=== PATIENT | male | born 1955 | race Caucasian/White ===

== ENCOUNTER 2018-04-09 18:40 | Emergency (ER) | payer MEDICARE, BC ==
[2018-04-09 20:30] VITALS: BP 132/66
[2018-04-09] MEDS ORDERED: Doxycycline 100 MG Cap PO ONE (21:12)
--- NOTE | 2018-04-09 21:17 | EDM.PDOC ---
ED HPI GENERAL MEDICAL PROBLEM - General Chief Complaint: Bite:Animal, Insect Stated Complaint: TICK BITE Time Seen by Provider: 04/09/18 18:42 Source of Information: Reports: Patient History Limitations: Reports: No Limitations - History of Present Illness INITIAL COMMENTS - FREE TEXT/NARRATIVE: Bit by tick on ankle about 3 days ago. Today there is a small red ring around the area. - Related Data Allergies Allergy/AdvReac Type Severity Reaction Status Date / Time codeine Allergy Nausea and Verified 04/09/18 20:20 Vomiting Home Meds: Home Meds Calcium Carbonate/Vitamin D3 [Calcium 600 + Vit D Tablet] 1 each PO DAILY [History] Creon-6000 2 cap PO TIDAC 07/18/13 [History] Metoprolol Tartrate 25 mg PO BID 07/18/13 [History] Omeprazole 40 mg PO DAILY 07/18/13 [History] oxyCODONE HCl/Acetaminophen [oxyCODONE-Acetaminophen 5-325] 2 tab PO Q4H PRN [History] Folic Acid 1 mg PO DAILY 01/08/14 [History] Insulin Isophane NPH, Human [NovoLIN N] 28 units SUBCUT DAILY 01/08/14 [History] Sulfamethoxazole/Trimethoprim [Sulfamethoxazole-Tmp Ss Tablet] 1 tab PO DAILY [History] Social & Family History - Tobacco Use Smoking Status *Q: Current Every Day Smoker Years of Tobacco use: 40 Packs/Tins Daily: 1 ED ROS GENERAL - Review of Systems Review Of Systems: ROS reveals no pertinent complaints other than HPI. ED EXAM, ANIMAL BITE - Physical Exam Exam: See Below Exam Limited By: No Limitations General Appearance: Alert, WD/WN Skin Exam: Other (affected ankle: there is about 2 cm red circular area to anterior aspect of ankle with central bit ashley.) Course - Vital Signs Last Recorded V/S: Last Vital Signs Temp 36.0 C 04/09/18 20:28 Pulse 50 L 04/09/18 20:28 Resp 14 04/09/18 20:28 BP 132/66 04/09/18 20:28 Pulse Ox 93 L 04/09/18 20:28 - Orders/Labs/Meds Meds: Medications Discontinued Medications Generic Name Dose Route Start Last Admin Trade Name Freq PRN Reason Stop Dose Admin Doxycycline Hyclate 100 mg 04/09/18 21:12 Vibramycin PO 04/09/18 21:13 ONETIME ONE Departure - Departure Time of Disposition: 21:16 Disposition: Home, Self-Care 01 Condition: Fair Clinical Impression: Tick bite - Discharge Information Referrals: Bear Archuleta MD [Primary Care Provider] - Additional Instructions: take doxycycline 100 mg twice daily for 1 week. This will prevent Lyme disease.
== END 2018-04-09 21:25 | disposition home or self-care (01) ==
LOC: JP.ED 18:40
DX: S90.561A Insect bite (nonvenomous), right ankle, initial encounter (principal); F17.210 Nicotine dependence, cigarettes, uncomplicated; Z88.5 Allergy status to narcotic agent; Z79.899 Other long term (current) drug therapy; W57.XXXA Bitten or stung by nonvenomous insect and other nonvenomous arthropods, initial encounter
CPT/HCPCS: 99283; A9270

== ENCOUNTER 2019-11-23 07:26 | Day surgery (SDC) | payer MEDICARE, BC ==
[~2019-11-23 07:26] MED LIST: Lidocaine 1% with EPINEPHrine 1:100,000 50 ML MDV ONE; Midazolam 1 MG/ML 2 ML SDV ONE; Propofol 200 MG/20 ML SDV ONE; fentaNYL 100 MCG/2 ML SDV ONE
[2019-11-23] MEDS ORDERED: Dextrose 5%-Lactated Ringers 1,000 ML IV SCH (08:15)
[2019-11-23] MEDS ORDERED: Propofol 200 MG/20 ML SDV ONE (08:45)
[2019-11-23 10:48] VITALS: BP 114/65; PULSE 65
--- NOTE | 2019-11-27 12:08 | OR ---
DATE OF PROCEDURE: 11/23/2019 SURGEON: Oliverio Garay MD PREOPERATIVE DIAGNOSIS: Rule out temporal arteritis. POSTOPERATIVE DIAGNOSIS: Rule out temporal arteritis. OPERATIVE PROCEDURE: Bilateral temporal artery biopsies ([id number] [id number]). ANESTHESIA: Local plus IV sedation. INDICATION FOR PROCEDURE: The patient presents with bilateral headaches involving the temporal areas, along with some tenderness over the temporal arteries and is referred for bilateral temporal artery biopsies. Potential risks of the procedure including bleeding and infection were reviewed, and the patient wishes to proceed. DETAILS OF PROCEDURE: The patient was taken to the operative room and placed in a supine position. The temporal artery pulses were able to be palpated bilaterally and the course of the arteries over the temporal region were mapped out with indelible marker. IV sedation was administered and those areas were then prepped and draped. Beginning on the right side, a linear incision over the length of the artery was made and carried down through the skin and subcutaneous tissue. Roughly 3 to 4 cm length of the artery was then dissected out and proximally and distally was divided and ligated, and the remaining portion sent for a pathologic examination. The 2 ends were then suture ligated with 5-0 Vicryl stitch. The incision was closed with a layer of 5-0 Vicryl stitch deep and a 5-0 Vicryl subcuticular stitch and glue was applied incision at that point. A similar procedure was then completed on the left side. Both arteries were grossly somewhat edematous, but otherwise unremarkable. The procedure on the left side was identical to the right. The patient was taken to the recovery room in satisfactory condition. There were no evident complications. Oliverio Garay MD /[id number]
== END 2019-11-23 10:49 | disposition home or self-care (01) ==
LOC: JP.SDS 07:26
PROVIDERS: ATTEND Surgery
DX: R51 Headache (principal); E11.9 Type 2 diabetes mellitus without complications; J44.9 Chronic obstructive pulmonary disease, unspecified; K21.9 Gastro-esophageal reflux disease without esophagitis; F17.200 Nicotine dependence, unspecified, uncomplicated; Z88.5 Allergy status to narcotic agent
CPT/HCPCS: 37609; J2250; J2704; J3010; J7121; 88305; 88313

== ENCOUNTER 2020-12-23 06:48 | Day surgery (SDC) | payer MEDICARE, BC ==
[~2020-12-23 06:48] MED LIST changes: -Lidocaine 1% with EPINEPHrine 1:100,000 50 ML MDV ONE; -Midazolam 1 MG/ML 2 ML SDV ONE; -Propofol 200 MG/20 ML SDV ONE; +Sodium Chloride 0.9% 1,000 ML IV SCH; -fentaNYL 100 MCG/2 ML SDV ONE
[2020-12-23] MEDS ORDERED: Midazolam 1 MG/ML 2 ML SDV ONE (08:05)
[2020-12-23] MEDS ORDERED: Propofol 200 MG/20 ML SDV ONE (08:05)
[2020-12-23] MEDS ORDERED: fentaNYL 100 MCG/2 ML SDV ONE (08:05)
[2020-12-23 09:28] VITALS: BP 102/65; PULSE 68
--- NOTE | 2020-12-23 10:25 | OR ---
DATE OF PROCEDURE: 12/23/2020 SURGEON: Houston Arboleda MD PROCEDURE: Colonoscopy. FINDINGS: Sigmoid colon polyp, approximately 5 mm, completely removed using cold biopsy forceps. COMPLICATIONS: None. PUMP OILER: None. ANESTHESIA: MAC. PREOPERATIVE DIAGNOSIS: Screening colonoscopy/history of colon polyps. POSTOPERATIVE DIAGNOSIS: Screening colonoscopy/history of colon polyps. RISKS: Risks, benefits, alternatives, and limitations including, but not limited to infection, bleeding, perforation, false positives, false negatives were explained to the patient who wished to proceed. PROCEDURE IN DETAIL: The patient was placed in left lateral decubitus position. Digital rectal exam was performed without abnormality. Scope was introduced and advanced atraumatically to the ileocecal valve. A photo was taken of this. Scope was brought back to the ascending, transverse, descending colon, and retroflexed. No evidence of old or new blood. The aforementioned polyp was identified and completely removed. The patient had a few diverticula. No evidence of colitis or any other inflammation. No abnormalities on retroflexion. The patient tolerated the procedure well. Houston Arboleda MD /[id number]
== END 2020-12-23 09:50 | disposition home or self-care (01) ==
LOC: JP.SDS 06:48
PROVIDERS: ATTEND Surgery
DX: D12.4 Benign neoplasm of descending colon (principal); K57.30 Diverticulosis of large intestine without perforation or abscess without bleeding; J43.9 Emphysema, unspecified; Z86.010 Personal history of colon polyps; Z88.6 Allergy status to analgesic agent; Z87.891 Personal history of nicotine dependence
CPT/HCPCS: J2250; J2704; J3010; J7030

== ENCOUNTER 2024-02-09 16:28 | Emergency (ER) | payer MEDICARE, BC ==
[2024-02-09 16:36] VITALS: BP 166/76; PULSE 98
[2024-02-09] MEDS: Acetaminophen/oxyCODONE 325-5 MG Tab PO PRN (16:52)
[2024-02-09] MEDS ORDERED: Diphtheria,Pertussis(Acell),Tetanus Vaccine 0.5 ML Syringe IM ONE (18:08)
[2024-02-09] MEDS ORDERED: Bacitracin Oint 28.35 GM Tube TOP ONE (18:09)
== END 2024-02-09 18:52 | disposition home or self-care (01) ==
LOC: JP.ED 16:28
DX: S62.635B Displaced fracture of distal phalanx of left ring finger, initial encounter for open fracture (principal); S61.215A Laceration without foreign body of left ring finger without damage to nail, initial encounter; I10 Essential (primary) hypertension; J44.9 Chronic obstructive pulmonary disease, unspecified; E11.9 Type 2 diabetes mellitus without complications; Z88.8 Allergy status to other drugs, medicaments and biological substances; Z79.4 Long term (current) use of insulin; Z79.899 Other long term (current) drug therapy; Z90.49 Acquired absence of other specified parts of digestive tract; W23.0XXA Caught, crushed, jammed, or pinched between moving objects, initial encounter
CPT/HCPCS: 73140; 99283; A9270

== ENCOUNTER 2024-04-17 07:16 | Day surgery (SDC) | payer MEDICARE, BC ==
[~2024-04-17 07:16] MED LIST changes: +Midazolam 1 MG/ML 2 ML SDV ONE; -Sodium Chloride 0.9% 1,000 ML IV SCH
[2024-04-17] MEDS ORDERED: fentaNYL 50 MCG/ML SDV ONE (07:17)
[2024-04-17] MEDS ORDERED: Propofol 200 MG/20 ML SDV ONE (07:17)
[2024-04-17] MEDS: Lactated Ringers 1,000 ML IV SCH (08:09)
[2024-04-17 10:28] VITALS: BP 118/55; PULSE 72
== END 2024-04-17 10:25 | disposition home or self-care (01) ==
LOC: JP.SDS 07:16
PROVIDERS: ATTEND Family Medicine
DX: R19.7 Diarrhea, unspecified (principal); J44.9 Chronic obstructive pulmonary disease, unspecified; E11.9 Type 2 diabetes mellitus without complications; F17.200 Nicotine dependence, unspecified, uncomplicated; Z88.5 Allergy status to narcotic agent
CPT/HCPCS: 45380; J2250; J2704; J3010; J7120

== ENCOUNTER 2025-01-25 07:39 | Day surgery (SDC) | payer MEDICARE, BC ==
[2025-01-25 08:02] VITALS: BP 132/71; PULSE 65
[2025-01-25] MEDS: Sodium Chloride 0.9% 10 ML Syringe FLUSH PRN (08:14)
== END 2025-01-25 09:37 | disposition home or self-care (01) ==
LOC: JP.SDS 07:39
PROVIDERS: ATTEND Ophthalmology
DX: H26.9 Unspecified cataract (principal); Z53.8 Procedure and treatment not carried out for other reasons

== ENCOUNTER 2025-02-08 07:14 | Day surgery (SDC) | payer MEDICARE, BC ==
[2025-02-08] MEDS: Sodium Chloride 0.9% 10 ML Syringe FLUSH ONE (08:14)
[2025-02-08] MEDS ORDERED: Midazolam 1 MG/ML 2 ML SDV ONE (08:30)
[2025-02-08 09:12] VITALS: BP 121/66; PULSE 72
== END 2025-02-08 09:31 | disposition home or self-care (01) ==
LOC: JP.SDS 07:14
PROVIDERS: ATTEND Ophthalmology
DX: E11.36 Type 2 diabetes mellitus with diabetic cataract (principal); H25.12 Age-related nuclear cataract, left eye; J44.9 Chronic obstructive pulmonary disease, unspecified; F17.200 Nicotine dependence, unspecified, uncomplicated
CPT/HCPCS: 66984; J2250; V2632